=== PATIENT | male | born 1980 | race African-American/Black ===

== ENCOUNTER 2023-09-09 17:23 | Emergency (ER) | payer OTHER, SELFPAY ==
[2023-09-09 17:25] VITALS: BP 148/85; PULSE 80; RESP 16; TEMP 36.9; O2SAT 99
[2023-09-09 18:09] LABS: Influenza A QL RT-PCR Negative (Negative); Influenza B QL RT-PCR Negative (Negative); RSV RNA, RT-PCR Negative (Negative); SARS-CoV-2 RNA PCR Negative (Negative)
--- NOTE | 2023-09-09 18:58 | ED_ITS ---
HPI - Recheck/Abnormal Lab/Rx General Chief Complaint: Recheck/Abnormal Lab/Rx Stated Complaint: requesting COVID test Time Seen by Provider: 09/09/23 17:53 History of Present Illness HPI narrative: 43-year-old male presenting for COVID testing. Patient states that since this afternoon he has had mild abdominal pain and some nausea. States that he thinks he has a GI bug. 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 He denies any fevers, chest pain, shortness of breath, cough, nasal congestion. Related Data Allergies Allergy/AdvReac Type Severity Reaction Status Date / Time [place] Allergy Difficulty Uncoded 09/09/23 17:48 Swallowing Review of Systems Review of Systems: All systems reviewed & are unremarkable except as noted in HPI and below Exam Narrative: GENERAL: Well-appearing, in no acute distress, pleasant and cooperative HEAD: Normocephalic, atraumatic. EYES: PERRLA and EOMI. ENT: Mucous membranes moist. NECK: Supple. CHEST: Clear to auscultation. No respiratory distress. HEART: Regular rate and rhythm ABDOMEN: Soft, nontender, nondistended EXTREMITIES: Normal range of motion. No edema. SKIN: Warm, dry, no rash. NEURO: No focal deficits. Alert and oriented x3. PSYCH: Normal mood and affect. Course Vital Signs Vital signs: Vital Signs Temperature 98.5 F 09/09/23 17:25 Pulse Rate 80 09/09/23 17:25 Respiratory Rate 16 09/09/23 17:25 Blood Pressure 148/85 H 09/09/23 17:25 Pulse Oximetry 99 09/09/23 17:25 Temperature 98.5 F 09/09/23 17:25 Pulse Rate 80 09/09/23 17:25 Respiratory Rate 16 09/09/23 17:25 Blood Pressure 148/85 H 09/09/23 17:25 Pulse Oximetry 99 09/09/23 17:25 MDM - Recheck/Abnormal Lab/Rx MDM Narrative Medical decision making narrative: 45-year-old male presenting with viral symptoms. Vitals are stable. Exam is unremarkable. Negative for influenza, RSV, COVID. Patient would like to go home which I think is reasonable. Discussed appropriate supportive care and PCP follow-up. Appropriate return precautions given. Discharged in stable condition under Differential Diagnosis Differential diagnosis: Likely other (viral illness, COVID testing) Lab Data Attestation: I reviewed the patient's lab results. Labs: Lab Results 09/09/23 Range/Units 17:29 Influenza A (RT-PCR) Negative (Negative) Influenza B (RT-PCR) Negative (Negative) RSV (RT-PCR) Negative (Negative) SARS-CoV-2 RNA (RT-PCR) Negative (Negative) Critical Care Time Critical Care Time Critical Care Time: No Discharge Plan Discharge Clinical Impression: Viral syndrome Patient Disposition: Home, Self-Care Condition: Stable Instructions: Antibiotic Form, Viral Syndrome (ED) Additional Instructions: Please rest and drink plenty of fluids. Please follow-up with your PCP. 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
== END 2023-09-09 19:04 | disposition home or self-care (01) ==
PROVIDERS: Emergency Medicine; Emergency Provider Emergency Medicine
DX: B34.9 Viral infection, unspecified (principal); Z20.822 Contact with and (suspected) exposure to COVID-19
CPT/HCPCS: 87637; 99283